=== PATIENT | male | born 1955 | race Caucasian/White ===

== ENCOUNTER → 2018-10-08 09:53 | Outpatient (CLI) | payer MEDICARE, OTHER ==
[2015-06-13 12:30] VITALS: BMI 32.1
[~2018-10-08 09:53] MED LIST: LIPITOR10 MG PO; NEXIUM20 MG PO; NORCO 7.5/325 T1 TA1 PO; XANAX0.5 MG PO
== END | disposition home or self-care (01) ==
LOC: D.MRI 09:53
DX: M54.16 Radiculopathy, lumbar region (principal)